=== PATIENT | female | born 1990 | race Two or more races ===

== ENCOUNTER 2016-10-24 22:39 | Emergency (ER) | payer OTHER ==
[~2016-10-24] VITALS: Ht 160 cm; Wt 70.5 kg
[~2016-10-24 22:39] MED LIST: HYDR-3011 PO; KENC1 TOP
[2016-10-24 23:02] VITALS: Ht 160 cm; Wt 70.5 kg
[2016-10-25] MEDS ORDERED: LORA-186 PO (00:03)
[2016-10-25] MEDS ORDERED: FLUT9.9S NASAL (00:03)
[2016-10-25] MEDS ORDERED: FAMO-18 PO (00:03)
--- NOTE | 2016-10-25 00:10 | ERD ---
ER Documentation Chief Complaint Date/Time DATE: 10/25/16 TIME: 00:08 Chief Complaint SORE THROAT X 2 DAYS HPI This is a 26-year-old female presenting to the emergency room complaining of metallic taste since this morning. Patient states that throughout the day she started to feel maybe irritation rating it mild in severity. Patient denies any medical problems. Denies taking any medications for this. ROS All systems reviewed and are negative except as per history of present illness. Medications Home Meds Active Scripts Fluticasone Propionate (Flonase Allergy Relief) 9.9 Ml [place].susp, 1 SPRAY NASAL DAILY, #1 BOTTLE TO EACH NOSTRIL Prov:SANDOR CORDERO PA-C 10/25/16 Famotidine* (Pepcid*) 20 Mg Tablet, 20 MG PO DAILY for 15 Days, TAB Prov:SANDOR CORDERO PA-C 10/25/16 Loratadine* (Claritin*) 10 Mg Tablet, 10 MG PO DAILY, #20 TAB Prov:SANDOR CORDERO PA-C 10/25/16 Hydroxyzine Hcl* (Hydroxyzine Hcl*) 25 Mg Tablet, 25 MG PO Q8H Y for ITCHING, # 30 TAB Prov:TRIP DUMONT NP 05/03/16 Triamcinolone Acetonide* (Kenalog*) 0.1%-15GM Cr, 1 APPLIC TOP BID, #1 TUB Prov:TRIP DUMONT NP 05/03/16 Allergies Allergies: Coded Allergies: No Known Drug Allergies (Verified Allergy, Unknown, 05/03/16) PMhx/Soc Medical and Surgical Hx: pt denies Surgical Hx History of Surgery: Yes (Cervical Surg) Anesthesia Reaction: No Hx Neurological Disorder: No Hx Respiratory Disorders: No Hx Cardiac Disorders: No Hx Psychiatric Problems: No Hx Miscellaneous Medical Probl: No Hx Alcohol Use: Yes (Social) Hx Substance Use: No Hx Tobacco Use: Yes (quit in 2009) Smoking Status: Former smoker Physical Exam Vitals Vital Signs Date Time Temp Pulse Resp B/P Pulse Ox O2 Delivery O2 Flow Rate FiO2 10/24/16 23:02 99.0 88 20 116/67 98 Physical Exam GENERAL: well-developed/well-nourished, in no apparent distress, non-toxic appearing HEAD: NC/AT, no swelling noted in frontal or maxillary areas EARS: bilateral tympanic membrane is intact without erythema or effusion NARES: nares patent, rhinorrhea and congested THROAT: oropharynx cobblestoning EYES: Conjunctiva normal NECK: Supple, no lymphadenopathy PULM: CTA bilaterally, no rales, rhonchi, or wheezing heard CV: Normal S1S2, RRR, good capillary refill GI: Soft, non-distended, normal bowel sounds, non-tender BACK: No midline tenderness, no masses EXT No clubbing, cyanosis, or edema NEURO: Alert and Orientated SKIN: Intact, normal turgor PSYCH: Normal mood and mentation Procedures/MDM This is a 26-year-old female presenting to the emergency room complaining of metallic taste in the mouth. On examination there was no evidence of strep pharyngitis. This may be due to allergic rhinitis or acid reflux. I have discussed with patient that it is suitable for her to follow-up with the primary care physician regarding her condition. There was no emergent conditions identified. I have given her prescription for Claritin, Flonase and Pepcid for trial to see she will feel better. Discussed return to the ER for any worsening signs or symptoms. Patient understands and agrees with this plan Departure Diagnosis: Primary Impression: Metallic taste Additional Impression: Sore throat Condition: Stable Patient Instructions: Self-Care for Sore Throats Additional Instructions: FOLLOW UP WITH YOUR PRIMARY CARE PHYSICIAN TOMORROW.Return to this facility if you are not improving as expected. Take all medicines as directed. Return to this facility if you are not improving as expected. SANDOR CORDERO PA-C Oct 25, 2016 00:10
== END 2016-10-25 00:27 | disposition home or self-care (01) ==
LOC: FTE 22:39
DX: R43.8 Other disturbances of smell and taste (principal); Z87.891 Personal history of nicotine dependence
CPT/HCPCS: 99283

== ENCOUNTER 2018-06-10 11:55 | Emergency (ER) | END 2018-06-10 13:50 | disposition home or self-care (01) ==

== ENCOUNTER 2018-08-25 00:18 | Emergency (ER) | END 2018-08-25 03:12 | disposition home or self-care (01) ==

== ENCOUNTER 2019-03-05 23:30 | Emergency (ER) | payer BC ==
[~2019-03-05] VITALS: Ht 157.5 cm; Wt 73.5 kg
[~2019-03-05 23:30] MED LIST changes: +ALBU8.5H8 INH; +AZIT250T PO; +BEN50 PO; +FAMO-96 PO; +FLUT9.9S NASAL; -HYDR-3011 PO; +HYDR-843 PO; -KENC1 TOP; +LORA-186 PO; +PRED20TA PO; +TRIA15CR55 TOP
[2019-03-05 23:43] VITALS: RESP 18; Ht 157.5 cm; Wt 73.5 kg
[2019-03-06] MEDS ORDERED: IBUPROFEN 800 MG TAB PO ONE (06:30)
[2019-03-06] MEDS ORDERED: NAPR-985 PO (07:35)
[2019-03-06 08:12] VITALS: BP 131/73; PULSE 67
--- NOTE | 2019-03-07 06:46 | ERD ---
ER Documentation Chief Complaint Chief Complaint C/O LT HAND PAIN S/P INJURY W/ METAL SIGN HPI 29-year-old female presenting with pain to her left hand. Patient was at target and a metal sign fell from about 8 feet high. Patient used her left hand to block her face so did not hit her head but it elicited pain to her left hand. She is right-hand dominant. Pain is located primarily over the thumb region. Denies medical problems. NKDA. Surgical history denies. Social history denies ROS All systems reviewed and are negative except as per history of present illness. Medications Home Meds Active Scripts Naproxen* (Naprosyn*) 500 Mg Tablet, 500 MG PO BID PRN for PAIN AND/OR INFLAMMATION, #30 TAB Prov:STEVE BENSON PA-C 03/06/19 Albuterol Sulfate* (Proair HFA*) 8.5 Gm Hfa.aer.ad, 2 PUFF INH Q4, #1 INHALER Prov:KATINA FRIEND PA-C 08/25/18 Prednisone* (Prednisone*) 20 Mg Tab, 60 MG PO DAILY for 4 Days, TAB Prov:KATINA FRIEND PA-C 08/25/18 Azithromycin* (Zithromax*) 250 Mg Tablet, 250 MG PO .ZPACK DIRECTED, #6 TAB TAKE 500 MG (2 TABS) THE FIRST DAY THEN 250 MG (1 TAB) DAYS 2-5 Prov:KATINA FRIEND PA-C 08/25/18 Diphenhydramine Hcl* (Benadryl*) 50 Mg Cap, 50 MG PO Q6 PRN for itchy or swelling, #30 CAP Prov:MAHSA MILLER DO 06/10/18 Fluticasone Propionate (Flonase Allergy Relief) 9.9 Ml [place].susp, 1 SPRAY NASAL DAILY, #1 BOTTLE TO EACH NOSTRIL Prov:SANDOR CORDERO PA-C 10/25/16 Famotidine* (Pepcid*) 20 Mg Tablet, 20 MG PO DAILY for 15 Days, TAB Prov:SANDOR CORDERO PA-C 10/25/16 Loratadine* (Claritin*) 10 Mg Tablet, 10 MG PO DAILY, #20 TAB Prov:SANDOR CORDERO PA-C 10/25/16 Hydroxyzine Hcl* (Hydroxyzine Hcl*) 25 Mg Tablet, 25 MG PO Q8H PRN for ITCHING, #30 TAB Prov:SUREKHATRIP CHAN NP 05/03/16 Triamcinolone Acetonide* (Kenalog*) 0.1%-15GM Cr, 1 APPLIC TOP BID, #1 TUB Prov:TRIP DUMONT ALEXANDRU [employer] 05/03/16 Allergies Allergies: Coded Allergies: No Known Drug Allergies (Verified Allergy, Unknown, 03/06/19) PMhx/Soc History of Surgery: Yes (Cervical Surg) Anesthesia Reaction: No Hx Neurological Disorder: No Hx Respiratory Disorders: No Hx Cardiac Disorders: No Hx Psychiatric Problems: No Hx Miscellaneous Medical Probl: No Hx Alcohol Use: No Hx Substance Use: No Hx Tobacco Use: No Smoking Status: Never smoker FmHx Family History: No diabetes, No coronary disease, No other Physical Exam Vitals Vital Signs Date Temp Pulse Resp B/P (MAP) Pulse Ox O2 O2 Flow FiO2 Time Delivery Rate 03/06/19 67 131/73 08:12 (92) 03/05/19 99.3 71 18 132/78 100 23:43 (96) Physical Exam GENERAL: The patient is well-appearing, well-nourished, in no acute distress CHEST: Clear to auscultation bilaterally. There are no rales, wheezes or rhonchi. HEART: Regular rate and rhythm. No murmurs, clicks, rubs or gallops. No S3 or S4. EXTREMITIES: Tenderness to palpation to left hand. No obvious deformity. Normal range of motion of all digits. Questionable snuffbox tenderness. NEUROLOGIC: Alert and oriented. Cranial nerves II through XII intact. Motor strength in all 4 extremities with 5 out of 5 strength. Sensation grossly intact. SKIN: There is no apparent rash or petechiae. The skin is warm and dry. Results 24 hrs Current Medications Medications Dose Sig/Jung Start Time Status Last (Trade) Ordered Route PRN Stop Time Admin Dose Reason Admin Ibuprofen 800 mg ONCE ONCE 03/06/19 DC 03/06/19 (Motrin) PO 06:30 06:22 03/06/19 06:31 Procedures/MDM DIAGNOSTIC IMAGING REPORT Patient: ALTHEA PATINO : 1990 Age: 29 Sex: F MR #: [id number] DOS: 03/06/19610 Ordering MD: OLIVIER BENSON PA-C Location: [facility] Room/Bed: PROCEDURE: Left hand series CLINICAL INDICATION: Trauma TECHNIQUE: AP, lateral and oblique images left hand were obtained COMPARISON: None FINDINGS: No evidence of acute fracture or dislocation. The bony mineralization is normal. No focal bony blastic or lytic lesions. Soft tissues are unremarkable. IMPRESSION: No evidence of acute fracture dislocation or foreign body. DIAGNOSTIC IMAGING REPORT Patient: ALTHEA PATINO : 1990 Age: 29 Sex: F MR #: [id number] DOS: 03/06/19610 Ordering MD: OLIVIER BENSON PA-C Location: [facility] Room/Bed: PROCEDURE: Left wrist series CLINICAL INDICATION: Trauma TECHNIQUE: AP, lateral, navicular and oblique images were obtained of the left wrist. COMPARISON: Left hand series same day FINDINGS: There is no evidence of acute fracture or dislocation. The bony mineralization is normal. No focal bony blastic or lytic lesions. No erosions. Soft tissues are unremarkable. IMPRESSION: No evidence of acute fracture or dislocation. ER Course: Velcro splint applied in ED. Neuro intact pre-and post splint application. MDM: 29-year-old female presenting with pain to the left hand. I have low suspicion for acute fracture dislocation. I have low suspicion for tendon or ligament rupture. Patient likely sustained contusion to the hand secondary to incident. Patient is discharged with strict ER precautions and told to follow- up with primary care within 1 to 2 days for close evaluation. All questions answered at discharge Departure Diagnosis: Primary Impression: Hand contusion Condition: Stable Patient Instructions: Contusion, Upper Extremity Additional Instructions: FOLLOW UP WITH YOUR PRIMARY CARE PHYSICIAN TOMORROW.Return to this facility if you are not improving as expected. STEVE BENSON PA-C March 07, 2019 06:46
== END 2019-03-06 08:13 | disposition home or self-care (01) ==
LOC: FTE 23:30
DX: S60.222A Contusion of left hand, initial encounter (principal); W20.8XXA Other cause of strike by thrown, projected or falling object, initial encounter; Y92.9 Unspecified place or not applicable
CPT/HCPCS: 29125; 73110; 73130; Z7502; Z7610